=== PATIENT | female | born 1965 | race Caucasian/White ===

== ENCOUNTER 2018-02-20 16:58 | Inpatient (IN) | payer OTHER ==
[2018-02-20 21:11] LABS: ADD MAN DIFF? NO
[2018-02-20 21:20] LABS: BASOPHILS % 0.4 % (0.0-2.0); EOSINOPHILS # 0.1 10^3/ul (0.0-0.5); EOSINOPHILS % 1.5 % (0.0-7.0); HEMATOCRIT 41.9 % (37.0-47.0); HEMOGLOBIN 14.1 g/dl (12.0-16.0); LYMPHOCYTES # 2.4 10^3/ul (0.8-2.9); MEAN CORPUSCULAR HEMOGLOBIN 28.4 pg (29.0-33.0); MEAN CORPUSCULAR HGB CONC 33.7 g/dl (32.0-37.0); MEAN CORPUSCULAR VOLUME 84.3 fl (82.0-101.0); MEAN PLATELET VOLUME 10.6 fl (7.4-10.4); MONOCYTE # 0.6 10^3/ul (0.3-0.9); MONOCYTES % 8.3 % (0.0-11.0); NEUTROPHIL # 3.6 10^3/ul (1.6-7.5); NEUTROPHILS % 53.5 % (39.0-77.0); PLATELET COUNT 247 10^3/UL (140-415); RED BLOOD COUNT 4.97 10^6/ul (4.20-5.40); RED CELL DISTRIBUTION WIDTH 13.2 % (11.5-14.5)
[2018-02-20 21:20] LABS: WHITE BLOOD COUNT 6.8 10^3/ul (4.8-10.8)
[2018-02-20] MEDS: FAMOTIDINE 20 MG INJ IV (21:25)
[2018-02-20] MEDS: LIDOCAINE/MYLANTA 40 ML BTL PO (21:25)
[2018-02-20] MEDS: SOD CHLORIDE 0.9% 1,000 ML IV (21:26)
[2018-02-20 21:40] LABS: INR 0.93; PROTIME 12.6 Sec (11.9-14.9)
[2018-02-20 21:41] LABS: PARTIAL THROMBOPLASTIN TIME 25.4 Sec (25.0-35.0)
[2018-02-20 22:05] LABS: ALANINE AMINOTRANSFERASE 23 IU/L (13-69); ALBUMIN/GLOBULIN RATIO 1.14; ALKALINE PHOSPHATASE 77 IU/L (42-121); ANION GAP 13 (8-16); ASPARTATE AMINO TRANSFERASE 20 IU/L (15-46); BILIRUBIN,INDIRECT 0.4 mg/dl (0-1.1); BILIRUBIN,TOTAL 0.4 mg/dl (0.2-1.3); BLOOD UREA NITROGEN 16 mg/dl (7-20); CALCIUM 9.5 mg/dl (8.4-10.2); CARBON DIOXIDE 28 mmol/L (21-31); CHLORIDE 104 mmol/L (97-110); CREATININE 0.62 mg/dl (0.44-1.00); GLUCOSE 104 mg/dl (70-220); POTASSIUM 3.7 mmol/L (3.5-5.1); SODIUM 141 mmol/L (135-144); TOTAL PROTEIN 7.5 g/dl (6.1-8.1)
[2018-02-20 22:15] LABS: TROPONIN-I < 0.012 ng/ml (0.000-0.120)
[2018-02-20] MEDS: DIPHENHYDRAMINE 50 MG INJ IM (22:52)
[2018-02-20] MEDS: PANTOPRAZOLE 40 MG INJ IV (23:48)
[2018-02-21 00:01] LABS: HEMATOCRIT 39.7 % (37.0-47.0); HEMOGLOBIN 13.3 g/dl (12.0-16.0)
[2018-02-21] MEDS ORDERED: ONDANSETRON 4 MG INJ IV (00:30)
[2018-02-21] MEDS ORDERED: NACL 0.9% 3 ML SYG IV (00:30)
[2018-02-21] MEDS ORDERED: morphine 2 MG INJ IV (00:30)
[2018-02-21] MEDS: SOD CHLORIDE 0.9% 1,000 ML IV ×3 (01:58→14:17)
[2018-02-21 02:38] LABS: ADD MAN DIFF? NO
[2018-02-21 02:39] LABS: BASOPHILS % 0.2 % (0.0-2.0); EOSINOPHILS # 0.1 10^3/ul (0.0-0.5); HEMATOCRIT 40.6 % (37.0-47.0); HEMOGLOBIN 13.5 g/dl (12.0-16.0); LYMPHOCYTES # 2.5 10^3/ul (0.8-2.9); LYMPHOCYTES % 30.4 % (15.0-51.0); MEAN CORPUSCULAR HEMOGLOBIN 28.3 pg (29.0-33.0); MEAN CORPUSCULAR HGB CONC 33.3 g/dl (32.0-37.0); MEAN CORPUSCULAR VOLUME 85.1 fl (82.0-101.0); MEAN PLATELET VOLUME 10.5 fl (7.4-10.4); MONOCYTE # 0.6 10^3/ul (0.3-0.9); MONOCYTES % 7.2 % (0.0-11.0); PLATELET COUNT 225 10^3/UL (140-415); RED BLOOD COUNT 4.77 10^6/ul (4.20-5.40)
[2018-02-21 02:39] LABS: WHITE BLOOD COUNT 8.2 10^3/ul (4.8-10.8)
[2018-02-21] MEDS: PANTOPRAZOLE 40 MG INJ IV ×2 (06:17→20:44)
[2018-02-21 08:17] LABS: ADD MAN DIFF? NO
[2018-02-21 08:21] LABS: BASOPHILS % 0.3 % (0.0-2.0); EOSINOPHILS # 0.1 10^3/ul (0.0-0.5); HEMATOCRIT 41.7 % (37.0-47.0); HEMOGLOBIN 13.9 g/dl (12.0-16.0); LYMPHOCYTES % 29.6 % (15.0-51.0); MEAN CORPUSCULAR HEMOGLOBIN 28.6 pg (29.0-33.0); MEAN CORPUSCULAR HGB CONC 33.3 g/dl (32.0-37.0); MEAN CORPUSCULAR VOLUME 85.8 fl (82.0-101.0); MONOCYTE # 0.5 10^3/ul (0.3-0.9); NEUTROPHIL # 4.1 10^3/ul (1.6-7.5); PLATELET COUNT 238 10^3/UL (140-415); RED BLOOD COUNT 4.86 10^6/ul (4.20-5.40); RED CELL DISTRIBUTION WIDTH 13.1 % (11.5-14.5)
[2018-02-21 08:21] LABS: WHITE BLOOD COUNT 6.7 10^3/ul (4.8-10.8)
[2018-02-21 08:44] LABS: ALANINE AMINOTRANSFERASE 23 IU/L (13-69); ALBUMIN 3.4 g/dl (3.3-4.9); ALBUMIN/GLOBULIN RATIO 1.25; ALKALINE PHOSPHATASE 51 IU/L (42-121); ANION GAP 10 (8-16); ASPARTATE AMINO TRANSFERASE 15 IU/L (15-46); BILIRUBIN,INDIRECT 0.8 mg/dl (0-1.1); BILIRUBIN,TOTAL 0.8 mg/dl (0.2-1.3); BLOOD UREA NITROGEN 14 mg/dl (7-20); CALCIUM 8.7 mg/dl (8.4-10.2); CARBON DIOXIDE 27 mmol/L (21-31); CHLORIDE 109 mmol/L (97-110); CHOL/HDL RATIO 4.7 RATIO; CHOLESTEROL 138 mg/dl (100-200); CREATININE 0.69 mg/dl (0.44-1.00); GLUCOSE 92 mg/dl (70-220); HDL CHOLESTEROL 29 mg/dl (37-92); LDL CHOLESTEROL,CALCULATED 84 mg/dl; POTASSIUM 3.9 mmol/L (3.5-5.1); SODIUM 142 mmol/L (135-144); TOTAL PROTEIN 6.1 g/dl (6.1-8.1); TRIGLYCERIDES 124 mg/dl (0-149)
[2018-02-21 09:17] LABS: HEMOGLOBIN A1C 5.9 % (0-5.9)
[2018-02-21] MEDS: MAGNESIUM HYDROXIDE 30ML CUP PO (10:39)
[2018-02-21] MEDS: DOCUSATE SODIUM 100 MG CAP PO ×2 (10:39→20:44)
[2018-02-21 12:00] LABS: CARCINOEMBRYONIC ANTIGEN 1.3 ng/ml (0.0-5.0)
[2018-02-21] MEDS: DIPHENHYDRAMINE 25 MG CAP PO (12:51)
[2018-02-21] MEDS: SOD CHLORIDE 0.9% 100 ML (13:05)
[2018-02-21] MEDS: IOHEXOL 300MG/ML 150 ML BTL (13:05)
[2018-02-21 14:44] LABS: ADD MAN DIFF? NO
[2018-02-21 14:49] LABS: WHITE BLOOD COUNT 6.9 10^3/ul (4.8-10.8)
[2018-02-21 14:49] LABS: BASOPHILS % 0.1 % (0.0-2.0); EOSINOPHILS % 0.4 % (0.0-7.0); HEMATOCRIT 42.9 % (37.0-47.0); HEMOGLOBIN 14.4 g/dl (12.0-16.0); LYMPHOCYTES # 1.8 10^3/ul (0.8-2.9); LYMPHOCYTES % 26.7 % (15.0-51.0); MEAN CORPUSCULAR HEMOGLOBIN 28.5 pg (29.0-33.0); MEAN CORPUSCULAR HGB CONC 33.6 g/dl (32.0-37.0); MEAN PLATELET VOLUME 11.4 fl (7.4-10.4); MONOCYTE # 0.4 10^3/ul (0.3-0.9); MONOCYTES % 5.8 % (0.0-11.0); NEUTROPHIL # 4.6 10^3/ul (1.6-7.5); NEUTROPHILS % 66.7 % (39.0-77.0); PLATELET COUNT 246 10^3/UL (140-415); RED BLOOD COUNT 5.05 10^6/ul (4.20-5.40)
[2018-02-21] MEDS: BISACODYL (EC) 5 MG TAB PO (15:55)
[2018-02-21] MEDS: MAGNESIUM CITRATE 300 ML BTL PO (16:59)
[2018-02-21] MEDS: POLYETHYLENE GLYCOL 3350 119 GM POWDER PO (18:31)
[2018-02-22] MEDS: SOD CHLORIDE 0.9% 1,000 ML IV ×2 (02:48→18:31)
[2018-02-22] MEDS: POLYETHYLENE GLYCOL 3350 119 GM POWDER PO (06:02)
[2018-02-22] MEDS: ACETAMINOPHEN 325 MG TAB PO (06:42)
[2018-02-22] MEDS: DIPHENHYDRAMINE 50 MG INJ IV (07:09)
[2018-02-22] MEDS: MAGNESIUM HYDROXIDE 30ML CUP PO (08:04)
[2018-02-22] MEDS: DOCUSATE SODIUM 100 MG CAP PO ×2 (08:04→20:58)
[2018-02-22] MEDS: PANTOPRAZOLE 40 MG INJ IV ×2 (08:04→20:58)
[2018-02-22] MEDS: BISACODYL (EC) 5 MG TAB PO (08:04)
[2018-02-22 12:47] LABS: OCCULT BLOOD STOOL NEGATIVE (NEGATIVE)
[2018-02-22] MEDS: PROPOFOL 20 ML (16:55)
[2018-02-22] MEDS: MIDAZOLAM 1 MG/ML 2 ML INJ (16:56)
[2018-02-22] MEDS: FENTAnyl 50 MCG/ML VIAL (16:56)
[2018-02-23] MEDS: SOD CHLORIDE 0.9% 1,000 ML IV (07:03)
[2018-02-23] MEDS: DIPHENHYDRAMINE 25 MG CAP PO (07:06)
[2018-02-23] MEDS: DOCUSATE SODIUM 100 MG CAP PO (09:07)
[2018-02-23] MEDS: PANTOPRAZOLE 40 MG INJ IV (09:07)
[2018-02-23] MEDS: MAGNESIUM HYDROXIDE 30ML CUP PO (09:07)
== END 2018-02-23 14:49 | disposition home or self-care (01) | DRG 394 ==
LOC: E/R 16:58 → PP2 23:41
PROC: 0DJD8ZZ Inspection of Lower Intestinal Tract, Via Natural or Artificial Opening Endoscopic (ICD-10-PCS; principal; 2018-02-22 15:00)
PROC: 0DB68ZX Excision of Stomach, Via Natural or Artificial Opening Endoscopic, Diagnostic (ICD-10-PCS; 2018-02-22 15:00)
PROC: 0DB78ZX Excision of Stomach, Pylorus, Via Natural or Artificial Opening Endoscopic, Diagnostic (ICD-10-PCS; 2018-02-22 15:00)
DX: K64.8 Other hemorrhoids (principal); K92.1 Melena; K29.50 Unspecified chronic gastritis without bleeding; B96.81 Helicobacter pylori [H. pylori] as the cause of diseases classified elsewhere; D50.9 Iron deficiency anemia, unspecified; R10.13 Epigastric pain; K59.00 Constipation, unspecified
CPT/HCPCS: 36415; 74177; 80053; 80061; 82270; 82378; 83036; 84443; 84484; 84703; 85014; 85018; 85025; 85610; 85730; 86850; 86900; 86901; 88305; 88312; 96372; 96374; 99285-25; G0378